=== PATIENT | female | born 1945 | race Caucasian/White ===

== ENCOUNTER → 2019-01-11 | Outpatient (CLI) | payer MEDICARE, BC, OTHER ==
[~2019-01-11] MED LIST: AMLO5TAB6; ASPI81CH49 PO; ATEN25TA PO; CHLO125TA; DICY10CA13; ELIQ5TAB PO; FENO150C; LOPR1TAB6 PO; METF500T13; PARO20TA3; RABE1TAB; SIMV80TA13
== END ==
LOC: M PT 11:49
PROVIDERS: ATTEND Family Medicine
DX: Z51.89 Encounter for other specified aftercare (principal)

== ENCOUNTER → 2021-11-09 | Outpatient (CLI) | payer MEDICARE, BC, OTHER ==
[~2021-11-09] MED LIST changes: +AMLO1TAB24 PO; -AMLO5TAB6; -CHLO125TA; +CHLO125TA PO; +FENO160T10 PO; -METF500T13; +METF500T13 PO; -RABE1TAB; +RABE1TAB4 PO; +ROSU20TA5 PO; +SERT50TA29 PO
== END ==
LOC: M LABSMTC 10:10
PROVIDERS: ATTEND Anesthesiology
DX: Z01.812 Encounter for preprocedural laboratory examination (principal)

== ENCOUNTER 2021-11-13 06:43 | Day surgery (SDC) | payer MEDICARE, BC, OTHER ==
[~2021-11-13] VITALS: Ht 177.8 cm; Wt 80.6 kg
[2021-11-13] MEDS ORDERED: LIDOCAINE 1% SDV 5ML VIAL As Ordered ONE (06:54)
[2021-11-13] MEDS ORDERED: CEFUROXIME 1MG/0.1ML INTRACAMERAL INJ As Ordered ONE (06:54)
[2021-11-13] MEDS ORDERED: BSS IRR 500ML/OMIDRIA 4ML IRR BAG (OR ONLY) As Ordered ONE (06:58)
[2021-11-13] MEDS ORDERED: PHENYLEPHRINE 2.5% OPHTH SOL 2ML OS SCH (07:00)
[2021-11-13] MEDS ORDERED: OFLOXACIN 0.3 % (OCUFLOX) OPTH SOL 5ML OS SCH (07:00)
[2021-11-13] MEDS ORDERED: TROPICAMIDE 1% OPHTH SOLN 2ML OS SCH (07:00)
[2021-11-13] MEDS ORDERED: PROPARACAINE 0.5% OPHTH SOL 15ML OS ONE (07:00)
[2021-11-13] MEDS ORDERED: MIDAZOLAM INJ 2MG/2ML VIAL (J2250 PER 1MG) As Ordered ONE (07:12)
[2021-11-13] MEDS ORDERED: hydrALAZINE 20MG/ML 1ML VIAL (J0360 PER 20MG) As Ordered ONE (08:57)
[2021-11-13 09:29] VITALS: BP 141/63
== END 2021-11-13 09:54 | disposition home or self-care (01) ==
LOC: M SDC 06:43
PROVIDERS: ATTEND Ophthalmology
DX: H25.12 Age-related nuclear cataract, left eye (principal); H40.1122 Primary open-angle glaucoma, left eye, moderate stage; I48.0 Paroxysmal atrial fibrillation; I10 Essential (primary) hypertension; E11.9 Type 2 diabetes mellitus without complications; E28.39 Other primary ovarian failure; M19.90 Unspecified osteoarthritis, unspecified site; E78.5 Hyperlipidemia, unspecified; K21.9 Gastro-esophageal reflux disease without esophagitis; F32.A Depression, unspecified; K58.9 Irritable bowel syndrome, unspecified; Z89.512 Acquired absence of left leg below knee; Z79.899 Other long term (current) drug therapy; Z79.01 Long term (current) use of anticoagulants; Z79.84 Long term (current) use of oral hypoglycemic drugs
CPT/HCPCS: 66984; 66991; C1783; J0360; J0697; J1097; J2250; V2632

== ENCOUNTER → 2021-12-28 | Outpatient (CLI) | payer MEDICARE, BC, OTHER ==
[~2021-12-28] MED LIST changes: +TIMO0.5S29 OU
== END ==
LOC: M LABSMTC 09:23
PROVIDERS: ATTEND Anesthesiology
DX: Z01.812 Encounter for preprocedural laboratory examination (principal)

== ENCOUNTER 2022-01-01 05:58 | Day surgery (SDC) | payer MEDICARE, BC, OTHER ==
[~2022-01-01] VITALS: Ht 177.8 cm; Wt 79.8 kg
[2022-01-01] MEDS ORDERED: PROPARACAINE 0.5% OPHTH SOL 15ML OD ONE (06:00)
[2022-01-01] MEDS ORDERED: POLYTRIM OPTH DROPS 10ML As Ordered ONE (06:40)
[2022-01-01] MEDS ORDERED: LIDOCAINE 1% SDV 5ML VIAL As Ordered ONE (06:40)
[2022-01-01] MEDS ORDERED: BSS IRR 500ML/OMIDRIA 4ML IRR BAG (OR ONLY) As Ordered ONE (06:41)
[2022-01-01] MEDS ORDERED: CEFUROXIME 1MG/0.1ML INTRACAMERAL INJ As Ordered ONE (06:41)
[2022-01-01] MEDS: TROPICAMIDE 1% OPHTH SOLN 2ML OD SCH ×3 (06:42→07:46)
[2022-01-01] MEDS: OFLOXACIN 0.3 % (OCUFLOX) OPTH SOL 5ML OD SCH ×3 (06:42→07:46)
[2022-01-01] MEDS: PHENYLEPHRINE 2.5% OPHTH SOL 2ML OD SCH ×3 (06:42→07:46)
[2022-01-01] MEDS ORDERED: DUOVISC (0.50ML VISCOAT/0.85ML PROVISC) OPHTH KIT As Ordered ONE (07:10)
[2022-01-01] MEDS ORDERED: fentaNYL 100 MCG/2 ML INJECTION As Ordered ONE (07:16)
[2022-01-01] MEDS ORDERED: MIDAZOLAM INJ 2MG/2ML VIAL (J2250 PER 1MG) As Ordered ONE (07:16)
[2022-01-01] MEDS ORDERED: hydrALAZINE 20MG/ML 1ML VIAL (J0360 PER 20MG) As Ordered ONE (08:02)
[2022-01-01 08:16] VITALS: BP 130/62
== END 2022-01-01 08:40 | disposition home or self-care (01) ==
LOC: M SDC 05:58
PROVIDERS: ATTEND Ophthalmology
DX: H25.11 Age-related nuclear cataract, right eye (principal); H40.1112 Primary open-angle glaucoma, right eye, moderate stage; I10 Essential (primary) hypertension; I48.91 Unspecified atrial fibrillation; E11.9 Type 2 diabetes mellitus without complications; E78.5 Hyperlipidemia, unspecified; Z79.01 Long term (current) use of anticoagulants; Z79.899 Other long term (current) drug therapy; K21.9 Gastro-esophageal reflux disease without esophagitis; K44.9 Diaphragmatic hernia without obstruction or gangrene; K57.92 Diverticulitis of intestine, part unspecified, without perforation or abscess without bleeding; F32.A Depression, unspecified; Z87.891 Personal history of nicotine dependence
CPT/HCPCS: 66991; C1783; J0360; J0697; J1097; J2250; J3010; V2632